=== PATIENT | male | born 1975 | race African-American/Black ===

== ENCOUNTER 2018-05-03 12:52 | Emergency (ER) | payer OTHER ==
[~2018-05-03] VITALS: Ht 175.3 cm; Wt 98.0 kg
[2018-05-03 13:00] VITALS: Ht 175.3 cm; Wt 98.0 kg
[2018-05-03 16:28] VITALS: BP 121/65
== END 2018-05-03 16:28 | disposition home or self-care (01) ==
LOC: ED 12:52
DX: T78.3XXA Angioneurotic edema, initial encounter (principal); T78.40XA Allergy, unspecified, initial encounter; X58.XXXA Exposure to other specified factors, initial encounter
CPT/HCPCS: J1200; J2930; J3490